=== PATIENT | female | born 1985 | race Caucasian/White ===

== ENCOUNTER 2017-11-17 18:27 | Emergency (ER) | payer MEDICAID ==
[2017-11-17 18:36] VITALS: BMI 20.1
[2017-11-17 18:40] VITALS: RESP 20
[2017-11-17] MEDS ORDERED: Sucralfate 1 gm/10 ml Oral Susp UD PO STA (20:48)
--- NOTE | 2017-11-17 20:57 | C.PDOC ---
History Of Present Illness 32 year old female presents to the ER with a complaint of intermittent epigastric pain for the past 2 months. Patient reports the pain is more so when on an empty stomach. Denies nausea or vomiting. Chief Complaint (Nursing): Abdominal Pain History Per: Patient History/Exam Limitations: no limitations Onset/Duration Of Symptoms: Days, Intermittent Episodes Current Symptoms Are (Timing): Still Present Location Of Pain/Discomfort: Epigastric Radiation Of Pain To:: None Quality Of Discomfort: Unable To Describe Associated Symptoms: denies: Nausea, Vomiting Exacerbating Factors: None Alleviating Factors: None Past Medical History Reviewed: Historical Data, Nursing Documentation, Vital Signs Vital Signs: Last Vital Signs Temp 98.1 F 11/17/17 18:36 Pulse 86 11/17/17 18:36 Resp 20 11/17/17 18:36 BP 128/87 11/17/17 18:36 Pulse Ox 100 11/17/17 21:00 - [employer] Procedures INJECT/INFUSE NEC (02/07/14) VACUUM EXTRACT DEL NEC (07/07/14) Family History: States: Unknown Family Hx - Social History Hx Tobacco Use: No Hx Alcohol Use: No Hx Substance Use: Yes - Immunization History Hx Tetanus Toxoid Vaccination: No Hx Influenza Vaccination: No Hx Pneumococcal Vaccination: No Review Of Systems Constitutional: Negative for: Fever, Chills Cardiovascular: Negative for: Chest Pain, Palpitations Respiratory: Negative for: Shortness of Breath Gastrointestinal: Positive for: Abdominal Pain. Negative for: Nausea, Vomiting Physical Exam - Physical Exam Appears: Non-toxic, No Acute Distress, Other (Alert, Conscious) Skin: Normal Color, Warm, Dry Head: Atraumatic, Normacephalic Eye(s): bilateral: Normal Inspection Oral Mucosa: Moist Chest: Symmetrical, No Tenderness Cardiovascular: Rhythm Regular Respiratory: Normal Breath Sounds, No Rales, No Rhonchi, No Wheezing Gastrointestinal/Abdominal: Soft, Tenderness (Mild epigastric), No Guarding, No Rebound Neurological/Psych: Oriented x3, Normal Speech ED Course And Treatment - Laboratory Results Result Diagrams: 11/17/17 21:18 11/17/17 21:18 O2 Sat by Pulse Oximetry: 100 (room air) Pulse Ox Interpretation: Normal Progress Note: Blood work and urinalysis ordered. Carafate and pepcid administered. Disposition Counseled Patient/Family Regarding: Diagnosis - Disposition Referrals: [facility] [Outside] Disposition: HOME/ ROUTINE Disposition Time: 21:52 Condition: STABLE Prescriptions: Famotidine [Pepcid] 20 mg PO BID #30 tab Sucralfate [Carafate] 1 gm PO BID #14 tab Instructions: Gastritis (GEN), Diet for Ulcers and Gastritis (GEN) Forms: [facility] (Greek) - POA Present On Arrival: None - Clinical Impression Clinical Impression: Abdominal pain, Gastritis - Scribe Statement The provider has reviewed the documentation as recorded by the Scribmandy Blanton All medical record entries made by the Crowibmandy were at my direction and personally dictated by me. I have reviewed the chart and agree that the record accurately reflects my personal performance of the history, physical exam, medical decision making, and the department course for this patient. I have also personally directed, reviewed, and agree with the discharge instructions and disposition.
[2017-11-17 21:26] LABS: BASO # 0.1 K/uL (0.0-0.2); BASO % 0.5 % (0.0-2.0); EOS # 0.2 K/uL (0.0-0.7); EOS % 2.4 % (0.0-4.0); HEMOGLOBIN 14.7 g/dL (11.0-16.0); LYMPH # 4.1 K/uL (1.0-4.3); LYMPH % 43.3 % (20.0-40.0); MEAN CELL VOLUME 91.2 fL (81.0-99.0); MEAN CORPUSCULAR HEMOGLOBIN 30.7 pg (27.0-31.0); MEAN CORPUSCULAR HGB CONC 33.7 g/dL (33.0-37.0); MEAN PLATELET VOLUME 8.2 fL (7.2-11.7); MONO # 0.7 K/uL (0.0-0.8); MONO % 7.7 % (0.0-10.0); NEUT # 4.3 K/uL (1.8-7.0); NEUT % 46.1 % (50.0-75.0); RBC 4.78 Mil/uL (3.80-5.20); RED CELL DISTRIBUTION WIDTH 13.3 % (11.5-14.5); WHITE BLOOD COUNT 9.4 K/uL (4.8-10.8)
[2017-11-17 21:29] LABS: HCG,QUALITATIVE URINE NEGATIVE (NEGATIVE)
[2017-11-17 21:33] LABS: SQUAMOUS EPITHIAL 3 /hpf (0-5); URINE BILIRUBIN NEGATIVE (NEGATIVE); URINE BLOOD 3+ (NEGATIVE); URINE CLARITY Hazy (Clear); URINE COLOR Yellow (YELLOW); URINE GLUCOSE (UA) NORMAL (Normal); URINE LEUKOCYTE ESTERASE TRACE Leu/uL (Negative); URINE NITRATE NEGATIVE (NEGATIVE); URINE PROTEIN 1+ mg/dL (NEGATIVE); URINE UROBILINOGEN NORMAL mg/dL (0.2-1.0)
[2017-11-17 21:46] LABS: ALB/GLOB RATIO 1.4 (1.0-2.1); ALBUMIN 4.2 g/dL (3.5-5.0); ALT/SGPT 25 U/L (9-52); AST/SGOT 22 U/L (14-36); BLOOD UREA NITROGEN 8 mg/dL (7-17); CALCIUM 8.7 mg/dl (8.6-10.4); GFR AFRICAN-AMERICAN > 60; GFR NON-AFRICAN AMERICAN > 60; LIPASE 99 U/L (23-300)
[2017-11-17 23:54] VITALS: BP 122/81; PULSE 66; TEMP 98.3; O2SAT 98
== END 2017-11-17 22:20 | disposition home or self-care (01) ==
LOC: C.ER 18:27
DX: K29.70 Gastritis, unspecified, without bleeding (principal)

== ENCOUNTER 2018-03-11 11:15 | Emergency (ER) | payer MEDICAID ==
[2018-03-11 11:15] VITALS: BMI 20.1
[2018-03-11 11:30] VITALS: RESP 18
[2018-03-11 11:56] LABS: SQUAMOUS EPITHIAL 8 /hpf (0-5); URINE BILIRUBIN NEGATIVE (NEGATIVE); URINE BLOOD NEGATIVE (NEGATIVE); URINE CLARITY Hazy (Clear); URINE COLOR Yellow (YELLOW); URINE GLUCOSE (UA) NORMAL (Normal); URINE LEUKOCYTE ESTERASE NEG Leu/uL (Negative); URINE PROTEIN NEGATIVE (NEGATIVE); URINE UROBILINOGEN NORMAL mg/dL (0.2-1.0)
--- NOTE | 2018-03-11 11:56 | C.PDOC ---
History Of Present Illness Patient is a 32 y/o female who presents to the ED with a complaint of suprapubic abdominal pain s/p cervical biopsy last Saturday 03/03. Patient reports to have experienced similar episodes over the last year, receiving multiple workups; patient states current pain is similar to past, but worsened today, prompting visit. Admits to mild vomiting, LMP 02/28. Denies using any pain medications or urinary symptoms. Time Seen by Provider: 03/11/18 11:37 Chief Complaint (Nursing): Abdominal Pain History Per: Patient History/Exam Limitations: no limitations Onset/Duration Of Symptoms: Intermittent Episodes (over last 1 year), Worse Since (biopsy 03/03) Current Symptoms Are (Timing): Still Present Associated Symptoms: Vomiting (mild) Recent travel outside of the [place]: No Past Medical History Reviewed: Historical Data, Nursing Documentation, Vital Signs Vital Signs: Last Vital Signs Temp 98.1 F 03/11/18 11:27 Pulse 92 H 03/11/18 11:27 Resp 18 03/11/18 11:27 BP 146/92 H 03/11/18 11:27 Pulse Ox 100 03/11/18 14:29 - Medical History PMH: Denies: Chronic Kidney Disease Other PMH: cervical cancer Surgical History: No Surg Hx - [facility] Procedures INJECT/INFUSE NEC (02/07/14) VACUUM EXTRACT DEL NEC (07/07/14) Family History: States: No Known Family Hx - Social History Hx Tobacco Use: Yes (light smoker) Hx Alcohol Use: No Hx Substance Use: Yes - Immunization History Hx Tetanus Toxoid Vaccination: No Hx Influenza Vaccination: No Hx Pneumococcal Vaccination: No Review Of Systems Constitutional: Negative for: Fever, Chills Gastrointestinal: Positive for: Vomiting (mild), Abdominal Pain (suprapubic). Negative for: Nausea, Diarrhea Genitourinary: Negative for: Dysuria, Frequency, Hematuria, Vaginal Bleeding Physical Exam - Physical Exam Appears: Non-toxic, In Acute Distress (mild), Other (tearful) Skin: Normal Color, Warm, Dry Head: Atraumatic, Normacephalic Oral Mucosa: Moist Chest: Symmetrical Cardiovascular: Rhythm Regular, No Murmur Respiratory: Normal Breath Sounds, No Rales, No Rhonchi, No Wheezing Gastrointestinal/Abdominal: Soft, No Tenderness, Other (suprapubic discomfort) Neurological/Psych: Oriented x3, Normal Speech, Normal Cognition ED Course And Treatment - Laboratory Results Result Diagrams: 03/11/18 13:08 03/11/18 13:08 O2 Sat by Pulse Oximetry: 100 - CT Scan/US Pelvic/Transvaginal US Other Rad Studies (CT/US): Interpreted By Me, Read By Radiologist CT/US Interpretation: HISTORY: Pelvic pain. COMPARISON: None available. TECHNIQUE: Transabdominal and transvaginal pelvic ultrasound was performed. FINDINGS: UTERUS: Measures 10.1 x 4.7 x 5.5 cm. Anteverted, normal in size and appearance. There is normal myometrial echotexture. No fibroid or other mass lesion seen. ENDOMETRIUM: Measures 5.2 mm in diameter. The central endometrial echo complex is normal in appearance. CERVIX: No cervical abnormality identified. RIGHT OVARY: Measures 2.7 x 2.2 x 3.8 cm. No solid mass. Normal flow. LEFT OVARY: Measures 2.7 x 1.8 x 2.8 cm. No solid mass. Normal flow. FREE FLUID: No significant free fluid noted. OTHER FINDINGS: None. IMPRESSION: Normal pelvic ultrasound. Progress Note: beta-HCG, blood work, transvaginal US, pelvis US ordered. Reglan and Toradol administered. Disposition Counseled Patient/Family Regarding: Studies Performed, Diagnosis, Need For Followup, Rx Given - Disposition Referrals: [facility] [Outside] [facility] [Outside] Disposition: HOME/ ROUTINE Disposition Time: 14:28 Condition: IMPROVED Prescriptions: Tramadol HCl [Ultram] 50 mg PO QID #20 tab Instructions: Chronic Pelvic Pain (DC) Forms: [facility] (Cuban), Work Excuse - Clinical Impression Clinical Impression: Pelvic pain - Scribe Statement The provider has reviewed the documentation as recorded by the Scribe Marilia Chung All medical record entries made by the Scribe were at my direction and personally dictated by me. I have reviewed the chart and agree that the record accurately reflects my personal performance of the history, physical exam, medical decision making, and the department course for this patient. I have also personally directed, reviewed, and agree with the discharge instructions and disposition.
[2018-03-11 13:13] LABS: BASO % 0.4 % (0.0-2.0); EOS % 0.5 % (0.0-4.0); HEMOGLOBIN 14.9 g/dL (11.0-16.0); LYMPH # 1.7 K/uL (1.0-4.3); LYMPH % 21.8 % (20.0-40.0); MEAN CORPUSCULAR HEMOGLOBIN 31.3 pg (27.0-31.0); MEAN CORPUSCULAR HGB CONC 34.5 g/dL (33.0-37.0); MEAN PLATELET VOLUME 8.4 fL (7.2-11.7); MONO # 0.6 K/uL (0.0-0.8); MONO % 7.7 % (0.0-10.0); NEUT # 5.4 K/uL (1.8-7.0); NEUT % 69.6 % (50.0-75.0); RBC 4.75 Mil/uL (3.80-5.20); RED CELL DISTRIBUTION WIDTH 13.9 % (11.5-14.5); WHITE BLOOD COUNT 7.7 K/uL (4.8-10.8)
[2018-03-11] MEDS ORDERED: Aluminum Hydroxide/Magnesium Hydroxide Susp (30 mL) ONE (13:24)
[2018-03-11 13:42] LABS: ALB/GLOB RATIO 1.6 (1.0-2.1); ALBUMIN 4.6 g/dL (3.5-5.0); ALT/SGPT 8 U/L (9-52); AST/SGOT 23 U/L (14-36); BLOOD UREA NITROGEN 7 mg/dL (7-17); CALCIUM 8.9 mg/dl (8.6-10.4); GFR AFRICAN-AMERICAN > 60; GFR NON-AFRICAN AMERICAN > 60
--- NOTE | 2018-03-11 14:05 | US ---
HISTORY: Pelvic pain COMPARISON: None available. TECHNIQUE: Transabdominal and transvaginal pelvic ultrasound was performed. FINDINGS: UTERUS: Measures 10.1 x 4.7 x 5.5 cm. Anteverted, normal in size and appearance. There is normal myometrial echotexture. No fibroid or other mass lesion seen. ENDOMETRIUM: Measures 5.2 mm in diameter. The central endometrial echo complex is normal in appearance. CERVIX: No cervical abnormality identified. RIGHT OVARY: Measures 2.7 x 2.2 x 3.8 cm. No solid mass. Normal flow. LEFT OVARY: Measures 2.7 x 1.8 x 2.8 cm. No solid mass. Normal flow. FREE FLUID: No significant free fluid noted. OTHER FINDINGS: None. IMPRESSION: Normal pelvic ultrasound.
[2018-03-11 15:07] VITALS: BP 126/72; PULSE 78; TEMP 98; O2SAT 98
== END 2018-03-11 15:07 | disposition home or self-care (01) ==
LOC: C.ER 11:15
DX: R10.2 Pelvic and perineal pain (principal)
CPT/HCPCS: 76830; 76856; 80053; 81001; 84702; 85025; 96374; 96375; 99284; J1885; J2765

== ENCOUNTER 2018-04-06 10:58 | Emergency (ER) | payer MEDICAID ==
[2018-04-06 10:58] VITALS: BMI 20.1
[2018-04-06 11:14] VITALS: BP 131/79; PULSE 74; RESP 18; TEMP 99.6; O2SAT 99
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
== END 2018-04-06 12:18 | disposition home or self-care (01) ==
LOC: C.ER 10:58
DX: S00.83XA Contusion of other part of head, initial encounter (principal); Y08.89XA Assault by other specified means, initial encounter; Y92.9 Unspecified place or not applicable

== ENCOUNTER 2018-05-25 08:17 | Emergency (ER) | payer MEDICAID ==
[2018-05-25 08:17] VITALS: BMI 20.1
[2018-05-25 08:27] VITALS: RESP 18; TEMP 99.1
--- NOTE | 2018-05-25 08:48 | C.PDOC ---
History Of Present Illness 32 y/o female presents to the ER complaining of right ear pain. Patient states that she was seen for similar symptoms in [place] [facility] in March 2018. However, patient reports that she has ongoing pain which has become gradually worse over the past few days. Denies trauma, hearing loss, and recent swimming. Time Seen by Provider: 05/25/18 08:30 Chief Complaint (Nursing): ENT Problem History Per: Patient History/Exam Limitations: None Onset/Duration Of Symptoms: Days Current Symptoms Are (Timing): Still Present Severity: Moderate Past Medical History Reviewed: Historical Data, Nursing Documentation, Vital Signs Vital Signs: Last Vital Signs Temp 99.1 F 05/25/18 08:23 Pulse 68 05/25/18 09:25 Resp 18 05/25/18 09:25 BP 109/73 05/25/18 09:25 Pulse Ox 100 05/25/18 09:50 - Medical History PMH: No Chronic Diseases Denies: Chronic Kidney Disease Other Surgeries: Hx of surgeries - [facility] Procedures INJECT/INFUSE NEC (02/07/14) VACUUM EXTRACT DEL NEC (07/07/14) Family History: States: No Known Family Hx - Social History Hx Tobacco Use: Yes (light smoker) Hx Alcohol Use: Yes Hx Substance Use: Yes - Immunization History Hx Tetanus Toxoid Vaccination: No Hx Influenza Vaccination: No Hx Pneumococcal Vaccination: No Review Of Systems Except As Marked, All Systems Reviewed And Found Negative. Constitutional: Negative for: Fever, Chills ENT: Positive for: Ear Pain (left ear pain) Physical Exam - Physical Exam Appears: Non-toxic, No Acute Distress Skin: Normal Color, Warm, Dry Head: Atraumatic, Normacephalic Eye(s): bilateral: Normal Inspection Ear(s): Left: Normal, Right: Other (TM injection, tenderness and inflammation to external ear, pain on manipulation of tragus, no mastoid tenderness, no gross cellulitic process) Nose: Normal Oral Mucosa: Moist Throat: Normal, No Erythema, No Exudate Neck: Supple Chest: Symmetrical Cardiovascular: Rhythm Regular Respiratory: Normal Breath Sounds, No Rales, No Rhonchi, No Wheezing Gastrointestinal/Abdominal: Normal Exam, Soft, No Tenderness, No Guarding, No Rebound Neurological/Psych: Oriented x3, Normal Speech ED Course And Treatment O2 Sat by Pulse Oximetry: 100 (RA) Pulse Ox Interpretation: Normal Medical Decision Making Medical Decision Making: Assessment: Otitis Media Plan: --Amoxicillin PO --Motrin PO Updates: Patient has been discharged and instructed to follow up with ENT in 2 days. Disposition Counseled Patient/Family Regarding: Studies Performed, Diagnosis, Need For Followup - Disposition Referrals: Sha Wade MD [Staff Provider] - Disposition: HOME/ ROUTINE Disposition Time: 08:45 Condition: STABLE Additional Instructions: follow up with ENT specialist within 2 days call to make an appointment take medications as prescribed return to ER if symptoms worsens or progress Prescriptions: Amoxicillin/Clavulanate [Augmentin 875 MG-125 MG] 1 tab PO BID #20 tab Naproxen [Naprosyn] 500 mg PO BID PRN #16 tab PRN Reason: Pain, Moderate (4-7) Neomycin/Polymyxin/Hydrocort [Cortisporin Otic Soln] 3 drp EXT TID #1 bottle Instructions: Ear Infections (Otitis Media) (DC), Outer Ear Infection (DC) Forms: General Discharge Instructions, [facility] (Romanian), Work Excuse - Clinical Impression Clinical Impression: Otitis - Scribe Statement The provider has reviewed the documentation as recorded by the Crowibe Darwin Ta Provider Attestation: All medical record entries made by the Scribe were at my direction and personally dictated by me. I have reviewed the chart and agree that the record accurately reflects my personal performance of the history, physical exam, medical decision making, and the department course for this patient. I have also personally directed, reviewed, and agree with the discharge instructions and disposition.
[2018-05-25] MEDS ORDERED: Amoxicillin-Clav 500-125 mg Tab PO ONE (09:17)
[2018-05-25 09:31] VITALS: BP 109/73; PULSE 68
[2018-05-25 09:46] VITALS: O2SAT 100
== END 2018-05-25 09:26 | disposition home or self-care (01) ==
LOC: C.ER 08:17
DX: H66.90 Otitis media, unspecified, unspecified ear (principal); F17.200 Nicotine dependence, unspecified, uncomplicated